=== PATIENT | female | born 2000 | race Two or more races ===

== ENCOUNTER 2024-07-14 13:06 | Emergency (ER) | payer OTHER ==
[~2024-07-14] VITALS: Ht 160 cm; Wt 85.5 kg
[2024-07-14 13:34] LABS: Urine Bacteria None Seen /hpf (None Seen)
[2024-07-14 14:00] LABS: Urine Blood 2+ /uL (Negative); Urine Clarity Clear (Clear); Urine Color Light-Yellow (Yellow); Urine Protein, UAD Negative (Negative); Urine Specific Gravity 1.015 (1.001-1.035); Urine Urobilinogen Normal (Negative); Urine WBC 2 /hpf (0 - 5)
[2024-07-14 14:12] LABS: Basophils # (auto) 0.1 10 ^3/uL (0-0.2); Basophils % (auto) 0.6 % (0.0-2.0); Eosinophils # (auto) 0.2 10 ^3/uL (0-0.8); Eosinophils % (auto) 1.7 % (0.0-7.0); Hematocrit 44.8 % (36.0-46.0); Hemoglobin 15.2 g/dL (12.2-16.2); Lymphocytes # (auto) 2.9 10 ^3/uL (0.4-5.4); Lymphocytes % (auto) 30.5 % (10.0-50.0); Mean Corpuscular Hemoglobin 29.5 pg (28.0-32.0); Mean Corpuscular Hgb Conc. 33.8 g/dL (32.0-36.0); Mean Corpuscular Volume 87.3 fL (80.0-100.0); Monocytes # (auto) 0.7 10 ^3/uL (0-1.3); Monocytes % (auto) 7.4 % (0.0-12.0); Neutrophils # (auto) 5.7 10 ^3/uL (1.6-8.6); Neutrophils % (auto) 59.8 % (37.0-80.0); Nucleated Red Blood Cells % 0.1 %; Platelet Count (auto) 291 10^3/uL (140-450); Red Blood Cells 5.13 10^6/uL (4.0-5.20); Red Cell Distribution Width 12.7 % (11.8-14.3); White Blood Cell 9.5 10^3/uL (4.4-10.8)
[2024-07-14 14:29] LABS: Alanine Aminotransferase 21 U/L (7-40); Alkaline Phosphatase 58 U/L (46-116); Anion Gap 5 (5-15); BUN/Creatinine Ratio 11.5 (10.0-20.0); Blood Urea Nitrogen 9 mg/dL (9-23); Calcium 9.9 mg/dL (8.7-10.4); Carbon Dioxide 25 mmol/L (20-31); Chloride 106 mmol/L (98-107); Glucose 95 mg/dL (74-106); Potassium 3.7 mmol/L (3.5-5.1); Sodium 136 mmol/L (136-145)
[2024-07-14 14:30] LABS: Albumin 4.5 g/dL (3.2-4.8); Aspartate Aminotransferase 14 U/L (13-40); Bilirubin, Total 0.6 mg/dL (0.2-1.0); Total Protein 7.3 g/dL (5.7-8.2)
[2024-07-14 15:53] LABS: INR 0.99 (0.9-1.15); Partial Thromboplastin Time 28.2 SEC (24.5-34.5); Prothrombin Time 10.5 sec (9.3-11.8)
[2024-07-14 17:37] VITALS: BP 132/73; PULSE 76; RESP 16; TEMP 98.1; O2SAT 97
== END 2024-07-14 17:47 | disposition home or self-care (01) ==
LOC: ER 13:06
DX: O20.8 Other hemorrhage in early pregnancy (principal); N93.9 Abnormal uterine and vaginal bleeding, unspecified; Z3A.08 8 weeks gestation of pregnancy
CPT/HCPCS: 36415; 76801; 76817; 80053; 81001; 84702; 85025; 85610; 85730; 86850; 86900; 86901

== ENCOUNTER 2025-02-23 21:24 | Inpatient (IN) | payer OTHER ==
[~2025-02-23] VITALS: Ht 157.5 cm; Wt 88.9 kg
[2025-02-23 22:59] LABS: Fern Testing Positive
--- NOTE | 2025-02-23 22:59 | DVHHP2 ---
OB CC & HPI Date Date of Admission: Feb 23, 2025 Patient Identification: : 2 Para: 1 EDC: Mar 06, 2025 EGA: 38.3wks Chief Complaints: Reason for admission: rupture of membranes History of Present Complaints 24yo IUP@38.3wks presents in labor. Pt reports UCs/LOF/VB that started at 2000 after having sex at 1730. Reports clear fluid gush after sex. Denies PEREYRA/vision changes/RUQ pain. Endorses +FM. PNC with Dr. Manny Stack, no records available, PNC complicated by GDM, A1 per pt. Pt reports EFW in office today was 7lbs 10oz. NORRIS 03/06/25 based on LMP c/w 1st trimester sono, GBS unknown. OB hx: x1, uncomplicated in 2022, 6lbs 14oz Past Medical History Cardiac: No pertinent Hx Pulmonary: No pertinent Hx Central Nervous System: No pertinent Hx GI: No pertinent Hx Hemotology/Oncology: No pertinent Hx Hepatobiliary: No pertinent Hx Psychiatric: No pertinent Hx Musculoskeletal: No pertinent Hx Rheumotologic: No pertinent Hx Infectious Disease: No peritnent Hx ENT: No pertinent Hx Renal/: No pertinent Hx Endocrine: No pertinent Hx Dermatology: No pertinent Hx Past Surgical History: No pertinent Hx OB History OB History Care: Good Care (per pt) Ultrasounds: Normal mid trimester US (per pt) Obstetrical Complications: Gestational Diabetes (A1 per pt) Medical Complications: None Allergies: Coded Allergies: No Known Drug Allergy (Verified Allergy, Unknown, 07/14/24) Allergies NKDA Home Meds PNV Family & Social History Family/Social History Past Family/Social History: denies Blood Type: Unknown Rubella: unknown RPR/VDRL: Unknown GBS Status: Negative (per pt) HBsAG: Unknown Review of Systems Constitutional: No symptom reported Ears, Nose, & Throat: No symptom reported Eyes: No symptom reported Pulmonary/Respiratory: No symptom reported Cardiovascular: No symptom reported Gastrointestinal: No symptom reported Genitourinary: No symptom reported Musculoskeletal: No symptom reported Skin: No symptom reported Psychiatric: No symptom reported Endocrine: No symptom reported Hemotologic/Lymphatic: No symptom reported OB Admission Exam Physical Exam Vitals: VSS, see CPN SSE by RN: +pooling, +VB Laboratory Tests Test 02/23/25 21:10 02/23/25 22:10 Range/Units Amniotic Fluid Ferning Test Positive Vaginal WBC (Wet Prep) Few Vaginal RBC (Wet Prep) Moderate Vaginal Epithelial Cells (Wet Prep) Rare Vaginal Bacteria (Wet Prep) Rare Vaginal Trichomonas (Wet Prep) Not present Vaginal Yeast (Wet Prep) None seen Vaginal Clue Cells (Wet Prep) None seen HEENT: TMs Normal, Fontanelles Normal, Nasal Mucosa Normal, Eyes non-injected, Oropharynx Normal, PERRLA, Moist Membranes, EOMI Heart: Rhythm Normal Lungs: Clear Abdomen: Gravid Extremities: Normal Reflexes: Normal Pelvic Exam: SVE by RN: 2.5/50/-3, vertex Heart Rate: 140's Accelerations: Accelerations Present Decelerations: No Decelerations Cleaner Operator Variability: Average (6-25) Contractions on Admission: < 5 Minutes Apart Intensity: Mild OB Plan Plan Admitting Diagnosis: SROM Plan: Other (augmentation) Induction Methd: Pitocin protocol Other Plan: A: 24yo IUP@38.3wks Pitocin augmentation SROM, clear fluid GDM, A1 Category I EFM GBS negative per pt P: Admit to L&D Informed consent obtained Discussed risks, benefits, alternatives of IV pitocin augmentation. Pt consents to it. monitoring per order Routine labs ordered OB complete ordered Pain mgmt PRN Frequent position changes in and out of bed encouraged Limit SVE unless necessary Intrauterine resuscitation PRN Anticipate CNM will consult with Dr. Valladares PRN Visit Coding OBGYN Date of Service: Feb 23, 2025 Billing Provider: ENEDELIA FRANCO CNM OFFICE MAIL CLERK Common Visit Codes: [id number] INP/OBS CARE (HIGH) OFFICE MAIL CLERK Procedure Codes: 34571-10- NON-STRESS TEST ENEDELIA FRANCO CNM Feb 23, 2025 22:59
[2025-02-23 23:01] LABS: Vaginal Epithelial Cells Rare
[2025-02-23 23:02] LABS: Vaginal Trichomonas Not Present
[2025-02-23 23:03] LABS: Vaginal Bacteria Rare; Vaginal Clue Cells None Seen
[2025-02-24] MEDS ORDERED: NALBUPHINE HCL 10 MG/1ml INJECTION IV PRN
[2025-02-24] MEDS ORDERED: LIDOCAINE 2%HCL (LOCAL ANESTH.) INJ 20ML MDV IJ PRN
[2025-02-24] MEDS ORDERED: LACTATED RINGER'S 1,000 ML IV SCH ×2
[2025-02-24] MEDS ORDERED: LACT. RINGERS/OXYTOCIN 20UNITS 1,000 ML IV SCH
[2025-02-24] MEDS ORDERED: TERBUTALINE SULFATE 1 MG/ML 1ML VIAL SC PRN
[2025-02-24] MEDS: PENICILLIN G POT 5MIL/D5 50ML 50 ML IV ONE (00:15)
[2025-02-24 01:31] LABS: Alanine Aminotransferase 10 U/L (7-40); Albumin 4.1 g/dL (3.2-4.8); Alkaline Phosphatase 111 U/L (46-116); Anion Gap 11 (5-15); BUN/Creatinine Ratio 16.1 (10.0-20.0); Bilirubin, Total 0.4 mg/dL (0.2-1.0); Blood Urea Nitrogen 9 mg/dL (9-23); Calcium 9.7 mg/dL (8.7-10.4); Carbon Dioxide 21 mmol/L (20-31); Glucose 87 mg/dL (74-106); Potassium 3.8 mmol/L (3.5-5.1); Sodium 139 mmol/L (136-145); Total Protein 6.4 g/dL (5.7-8.2)
--- NOTE | 2025-02-24 01:40 | DVH ---
OB ULTRASOUND, LIMITED CLINICAL INDICATION: no records, possible SROM TECHNIQUE: Multiple grayscale ultrasound and M-mode images were obtained of the pelvis for evaluation of intrauterine . COMPARISON: None FINDINGS: A single living fetus is seen in cephalic presentation. Biparietal diameter: 9.12 cm (37 weeks, 0 days) Head Circumference: 33.6 cm (38 weeks, 4 days) Abdomen Circumference: 36.6 cm (40 weeks, 4 days) Femur Length: 7.54 cm (38 weeks, 4 days) Estimated weight: 3778 grams (+/- 583 grams). 8 lb 9 oz Placenta: Anterior, grade 2. Amniotic fluid: Borderline Polyhydramnios. WANDER 24.24 cm heart rate: 153 beats/min. A complete anatomic survey was not performed on this exam. IMPRESSION: 1.Single living intrauterine with an estimated gestational age of 39 weeks, 0 days, cecelia esponding to an estimated date of delivery of 03/02/2025. 2.Borderline polyhydramnios
[2025-02-24 01:49] LABS: Chloride 107 mmol/L (98-107)
[2025-02-24 01:59] LABS: INR 0.93 (0.9-1.15); Prothrombin Time 9.9 sec (9.3-11.8)
[2025-02-24 02:00] LABS: Partial Thromboplastin Time 27.2 SEC (24.5-34.5)
[2025-02-24 02:02] LABS: Basophils # (auto) 0 10 ^3/uL (0-0.2); Basophils % (auto) 0.2 % (0.0-2.0); Eosinophils # (auto) 0.1 10 ^3/uL (0-0.8); Eosinophils % (auto) 0.8 % (0.0-7.0); Hematocrit 41.5 % (36.0-46.0); Hemoglobin 14.1 g/dL (12.2-16.2); Lymphocytes # (auto) 2.3 10 ^3/uL (0.4-5.4); Lymphocytes % (auto) 27.4 % (10.0-50.0); Mean Corpuscular Hemoglobin 30.1 pg (28.0-32.0); Mean Corpuscular Hgb Conc. 34.1 g/dL (32.0-36.0); Mean Corpuscular Volume 88.3 fL (80.0-100.0); Monocytes # (auto) 0.5 10 ^3/uL (0-1.3); Monocytes % (auto) 6.4 % (0.0-12.0); Neutrophils # (auto) 5.5 10 ^3/uL (1.6-8.6); Neutrophils % (auto) 65.2 % (37.0-80.0); Nucleated Red Blood Cells % 0.1 %; Platelet Count (auto) 235 10^3/uL (140-450); Red Cell Distribution Width 14.2 % (11.8-14.3); White Blood Cell 8.4 10^3/uL (4.4-10.8)
[2025-02-24 02:11] LABS: Urine Bacteria FEW /hpf (None Seen); Urine Blood 3+ /uL (Negative); Urine Clarity Clear (Clear); Urine Color Colorless (Yellow); Urine Mucus FEW (None Seen); Urine Protein, UAD Negative (Negative); Urine Specific Gravity 1.015 (1.001-1.035); Urine Squamous Epithelial Cell FEW /hpf (<5); Urine Urobilinogen Normal (Negative); Urine WBC 4 /HPF (0-5); Urine pH 6.5 (5.0-9.0)
[2025-02-24 02:33] LABS: Amphetamine Screen, Urine Neg (NEGATIVE); Barbiturate Scree,Urine Neg (NEGATIVE); Benzodiazephine Screen, Urine Neg (NEGATIVE); Cannabinoid Screen, Urine Neg (NEGATIVE); Cocaine Screen, Urine Neg (NEGATIVE); Opiate Scree,Urine Neg (NEGATIVE); Phencyclidine Screen, Urine Neg (NEGATIVE)
[2025-02-24 02:42] LABS: Aspartate Aminotransferase 13 U/L (13-40)
--- NOTE | 2025-02-24 02:55 | DVHPN2 ---
CNM Labor Progress Note Date and Time Seen Date Seen: Feb 24, 2025 Time Seen: 02:45 Subjective Subjective Comment Pt reports feeling more contractions but still tolerable. does not plan on getting an epidural. Objective Vital Signs VSS, see CPN [address] [address] Ph: [phone] DIAGNOSTIC IMAGING Diagnostic Imaging Report : [id number] Signed PATIENT: YELENA HOLM ACCT: [id number] UNIT: [id number] : 2000 LOC: [facility] ROOM / BED: TRIAGE2 / A AGE / SEX: 24 / F ADM STATUS: ADM IN SERVICE 48 ORDERING PHYSICIAN: ENEDELIA FRANCO CNM PROCEDURE(s): OBUS - OB ULTRASOUND COMP GTR 14 WKS REASON: no records, possible SROM ORDER NUMBER(s): [id number], ACCESSION NUMBER(s): [id number] OB ULTRASOUND, LIMITED CLINICAL INDICATION: no records, possible SROM TECHNIQUE: Multiple grayscale ultrasound and M-mode images were obtained of the pelvis for evaluation of intrauterine . COMPARISON: None FINDINGS: A single living fetus is seen in cephalic presentation. Biparietal diameter: 9.12 cm (37 weeks, 0 days) Head Circumference: 33.6 cm (38 weeks, 4 days) Abdomen Circumference: 36.6 cm (40 weeks, 4 days) Femur Length: 7.54 cm (38 weeks, 4 days) Estimated weight: 3778 grams (+/- 583 grams). 8 lb 9 oz Placenta: Anterior, grade 2. Amniotic fluid: Borderline Polyhydramnios. WANDER 24.24 cm heart rate: 153 beats/min. A complete anatomic survey was not performed on this exam. IMPRESSION: 1. Single living intrauterine with an estimated gestational age of 39 weeks, 0 days, corresponding to an estimated date of delivery of 03/02/2025. 2. Borderline polyhydramnios ATED BY: JOHNSON COTTON MD DICTATED DATE/TIME: 02/23/252351 SIGNED BY: JOHNSON COTTON MD SIGNED DATE/TIME: 02/23/252351 CC: Monitoring Method Monitoring Method: External (attempted to place FSE with pt consent, but unsuccessful due to copious amounts of amniotic fluid being expelled) Heart Rate Heart Rate Baseline: 130 Heart Rate Variability: Moderate Presence of FHR Accelerations: Yes Presence of FHR Decelerations: No Are all 5 Components of the FH: Yes Contractions Contractions Frequency: Other (q2-4 min) Duration of Contraction: 80 Contractions Intensity: Moderate Contractions Resting Tone: Relaxed Membranes Membranes: Ruptured (AROM, forebag) Amniotic Fluid Color: Clear Vaginal Exam Vag Exam Deferred: No Vaginal Exam Dilation: 5 Vaginal Exam Effacement: 70 Vaginal Exam Station: -2 Vaginal Exam Presentation: VTX Vaginal Exam Show: Moderate Medications Medications - Pitocin: No Medications - Pain Medications: PRN Medication - Epidural: No Lab Results Lab Results Vital Signs Date Time Temp Pulse Resp B/P (MAP) Pulse Ox O2 Delivery O2 Flow Rate FiO2 02/24/25 09:30 Room Air Current Medications Medications (Trade) Dose Ordered Sig/Kristie Start Time Stop Time Status Last Admin Dose Admin Lactated Ringer's 1,000 ml @ 125 mls/hr Q8H 02/24/25 00:00 02/24/25 07:53 DC Nalbuphine HCl (Nubain) 10 mg Q4HP PRN 02/24/25 00:00 02/24/25 07:53 DC Yari Philip (Tucks) 1 pad PRN PRN 02/24/25 00:00 02/24/25 03:14 1 PAD Sodium Lauryl Sulfate (Phisoderm) 240 ml PRN PRN 02/24/25 00:00 02/24/25 03:14 240 ML Benzocaine (Dermoplast) 1 applic PRN PRN 02/24/25 00:00 02/24/25 03:14 1 APPLIC Lidocaine HCl (Xylocaine) 20 ml ONCE PRN 02/24/25 00:00 02/24/25 07:53 DC Lactated Ringer's 1,000 ml @ 125 mls/hr Q8H 02/24/25 00:00 02/24/25 07:53 DC Oxytocin 1,000 ml @ 6 ml/hr Q24H 02/24/25 00:00 02/24/25 07:54 DC Terbutaline Sulfate (Brethine Inj) 0.25 mg ONCE PRN 02/24/25 00:00 02/24/25 07:54 DC Oxytocin 500 ml @ 999 mls/hr Q31M ONCE 02/24/25 00:00 02/24/25 01:42 DC 02/24/25 07:10 999 MLS/HR Oxytocin 500 ml @ 125 mls/hr Q4H ONCE 02/24/25 00:30 02/24/25 04:29 DC 02/24/25 09:40 125 MLS/HR Penicillin G Potassium 50 ml @ 100 mls/hr ONCE ONCE 02/24/25 00:15 02/24/25 02:01 DC Penicillin G Potassium [id number] units/Dextrose 50 ml @ 100 mls/hr Q4H 02/24/25 04:15 02/24/25 07:54 DC Calcium Carbonate (Tums) 1,000 mg ONCE ONCE 02/24/25 04:30 02/24/25 04:31 DC Methylergonovine Maleate (Methergine) 0.2 mg ONCE ONCE 02/24/25 07:15 02/24/25 07:33 DC 02/24/25 09:46 0.2 MG Ibuprofen (Motrin Tablet) 600 mg Q6HP PRN 02/24/25 08:00 02/24/25 08:25 600 MG Acetaminophen (Tylenol Tablet) 650 mg Q6HPRN PRN 02/24/25 08:00 Prenat Multivit/ Corporate Event Planner/Iron/Folic Ac (Prenavite Tablet) 1 DAILY 02/24/25 10:00 Docusate Sodium (Colace Capsule) 200 mg DAILYPRN PRN 02/24/25 10:00 Laboratory Tests Test 02/24/25 13:54 02/24/25 13:52 02/24/25 00:03 02/24/25 00:00 Range/Units White Blood Count 11.7 #H 4.4-10.8 10^3/uL Red Blood Count 4.00 4.0-5.20 10^6/uL Hemoglobin 12.0 L 12.2-16.2 g/dL Hematocrit 35.2 #L 36.0-46.0 % Mean Corpuscular Volume 88.1 80.0-100.0 fL Mean Corpuscular Hemoglobin 30.0 28.0-32.0 pg Mean Corpuscular Hemoglobin Concent 34.1 32.0-36.0 g/dL Red Cell Distribution Width 14.0 11.8-14.3 % Platelet Count 209 140-450 10^3/uL Mean Platelet Volume 6.7 L 6.9-10.8 fL Neutrophils (%) (Auto) 74.6 37.0-80.0 % Lymphocytes (%) (Auto) 14.3 10.0-50.0 % Monocytes (%) (Auto) 10.5 0.0-12.0 % Eosinophils (%) (Auto) 0.3 0.0-7.0 % Basophils (%) (Auto) 0.3 0.0-2.0 % Neutrophils # (Auto) 8.7 H 1.6-8.6 10 ^3/uL Lymphocytes # (Auto) 1.7 0.4-5.4 10 ^3/uL Monocytes # (Auto) 1.2 0-1.3 10 ^3/uL Eosinophils # (Auto) 0 0-0.8 10 ^3/uL Basophils # (Auto) 0 0-0.2 10 ^3/uL Nucleated Red Blood Cells 0.1 % POC Glucose 132 H 70-106 mg/dl Prothrombin Time 9.9 9.3-11.8 sec Prothrombin Time INR 0.93 0.9-1.15 Activated Partial Thromboplast Time 27.2 24.5-34.5 SEC Sodium Level 139 136-145 mmol/L Potassium Level 3.8 3.5-5.1 mmol/L Chloride Level 107 98-107 mmol/L Carbon Dioxide Level 21 20-31 mmol/L Anion Gap 11 5-15 Blood Urea Nitrogen 9 9-23 mg/dL Creatinine 0.56 0.550-1.02 mg/dL Glomerular Filtration Rate Calc 131 >90 mL/min BUN/Creatinine Ratio 16.1 10.0-20.0 Serum Glucose 87 74-106 mg/dL Calcium Level 9.7 8.7-10.4 mg/dL Total Bilirubin 0.4 0.2-1.0 mg/dL Aspartate Amino Transferase (AST) 13 13-40 U/L Alanine Aminotransferase (ALT) 10 7-40 U/L Alkaline Phosphatase 111 46-116 U/L Total Protein 6.4 5.7-8.2 g/dL Albumin 4.1 3.2-4.8 g/dL Treponema pallidum Antibody Non-reactive Negative Hepatitis B Surface Antigen Negative Negative Hepatitis C Antibody Negative Negative Rubella Antibody Reactive Urine Color Colorless Yellow Urine Clarity Clear Clear Urine pH 6.5 5.0-9.0 Urine Specific [place] 1.015 1.001-1.035 Urine Protein Negative Negative Urine Ketones Negative Negative Urine Blood 3+ H Negative /uL Urine Nitrite Negative Negative Urine Bilirubin Negative Negative Urine Urobilinogen Normal Negative mg/dL Urine Leukocyte Esterase 1+ Negative /uL Urine RBC 382 0 - 4 /hpf Urine Microscopic WBC 4 0-5 /HPF Urine Squamous Epithelial Cells Few <5 /hpf Urine Calcium Oxalate Crystals Few None Seen Urine Bacteria Few H None Seen /hpf Urine Mucus Few None Seen Urine Glucose Normal Normal mg/dL Urine Opiates Screen Neg NEGATIVE Urine Fentanyl Screen Neg NEGATIVE Urine Barbiturates Screen Neg NEGATIVE Urine Phencyclidine Screen Neg NEGATIVE Urine Amphetamines Screen Neg NEGATIVE Urine Benzodiazepines Screen Neg NEGATIVE Urine Cocaine Screen Neg NEGATIVE Urine Cannabinoids Screen Neg NEGATIVE Chlamydia trachomatis (ANCA) Pending Neisseria gonorrhoeae (ANCA) Pending Test 02/23/25 22:10 02/23/25 21:10 Range/Units Vaginal WBC (Wet Prep) Few Vaginal RBC (Wet Prep) Moderate Vaginal Epithelial Cells (Wet Prep) Rare Vaginal Bacteria (Wet Prep) Rare Vaginal Trichomonas (Wet Prep) Not present Vaginal Yeast (Wet Prep) None seen Vaginal Clue Cells (Wet Prep) None seen Amniotic Fluid Ferning Test Positive Assessment Assessment 24yo IUP@38.4wks Pitocin augmentation SROM, clear fluid GDM, A1 Category I EFM GBS negative per pt Plan Plan Start pitocin when tracing permits monitoring per order Pain mgmt PRN Frequent position changes in and out of bed encouraged Limit SVE unless necessary Intrauterine resuscitation PRN Anticipate CNRuchi will consult with Dr. Valladares PRN Plan discussed with: Patient, Spouse Visit Coding OBGYN Date of Service: Feb 24, 2025 Billing Provider: ENEDELIA FRANCO CNM POWER PLANT INSPECTOR Common Visit Codes: [id number] INP/OBS CARE(HIGH) ENEDELIA FRANCO CNM Feb 24, 2025 02:55
[2025-02-24] MEDS: DERMOPLAST 60ML BOTTLE TOP PRN (03:14)
[2025-02-24] MEDS: PHISODERM TOP SOLN 240ML BTL TOP PRN (03:14)
[2025-02-24] MEDS: WITCH HAZEL-GLYCERIN PAD TOP PRN (03:14)
[2025-02-24 03:55] LABS: Hepatitis B Surface Antigen Negative (Negative)
[2025-02-24] MEDS ORDERED: PENICILLIN G POTASSIUM 2,500,000 UNITS in D5W 5% 50 ML IV SCH (04:15)
[2025-02-24 04:21] LABS: Hepatitis C Antibody Negative (Negative)
[2025-02-24] MEDS ORDERED: CALCIUM CARB 500 MG CHEW TAB PO ONE (04:30)
[2025-02-24] MEDS: METHYLERGONOVINE MALEATE 0.2 MG/ML AMP IM ONE ×2 (07:04→09:46)
[2025-02-24] MEDS: LACT. RINGERS/OXYTOCIN 20UNITS 500 ML IV ONE ×2 (07:10→09:40)
--- NOTE | 2025-02-24 07:30 | LDN2 ---
Labor and Delivery Note Date 02/24/25 Age 24 2 Para now 2 AB 0 EDC 03/06/25 EGA 38.4 wks Diagnosis Vaginal Delivery: VTX Vacuum Assisted: No Placenta: Spontaneous Sex: Female Weight pending Apgars 9/9 Nuchal Cord Transected: No Amniotic Fluid: Clear Anesthesia None Episiotomy: No Extension: No Repaired with None EBL QBL 1100 mL Labs Laboratory Tests 02/24/25 00:03: Hepatitis B Surface Antigen Negative, Rubella Antibody Reactive Blood Bank 02/24/25 00:03: Blood Type O POSITIVE Complications None Conditions Stable Metal Cut Off Saw Tender Somu Comments/Significant Med [place] At 0648 this 24yo now delivered a viable Female by w/ APGARS 9/9. MIRA with left hand compound presentation. placed skin to skin on pts chest. Cord clamped and cut after pulsation ceased. Cord blood sent. Intact 3-vessel cord placenta delivered spontaneously, [place]. Pitocin IV bolus started. Uterus firm to massage, clots expelled, IM Methergine and IV TXA x1 given. Placenta sent to pathology. Patient had no anesthesia. Cervix/vagina inspected (intact) and perineum/labia intact. Fundus at U, firm, midline, and light lochia. QBL 1100ml. VSS. Count correct x2. Patient to care and baby to couplet care, both stable. Visit Coding OBGYN Date of Service: Feb 24, 2025 Billing Provider: ENEDELIA FRANCO CNM ASSOCIATE SOFTWARE DEVELOPER Common Visit Codes: PROCEDURE ONLY ASSOCIATE SOFTWARE DEVELOPER Procedure Codes: [id number] DEL INCLUDING LINA GAUTAM STUDENTMDW Feb 24, 2025 07:30
[2025-02-24] MEDS ORDERED: IBUPROFEN 600 MG TAB PO PRN (07:45)
[2025-02-24] MEDS ORDERED: ACETAMINOPHEN 325 MG TAB PO PRN ×2 (07:45→08:00)
[2025-02-24] MEDS: IBUPROFEN 600 MG TAB PO PRN (08:25)
[2025-02-24] MEDS ORDERED: DOCUSATE SOD 100 MG CAP PO PRN (10:00)
[2025-02-24] MEDS ORDERED: PRENATAL VITAMIN TAB PO SCH (10:00)
[2025-02-24 11:00] VITALS: BP 116/65; PULSE 79; RESP 18; TEMP 98.2; O2SAT 98
[2025-02-24] MEDS ORDERED: AMMONIA 0.33 ML INHALANT IN ONE (13:39)
[2025-02-24 14:05] LABS: Basophils # (auto) 0 10 ^3/uL (0-0.2); Basophils % (auto) 0.3 % (0.0-2.0); Eosinophils # (auto) 0 10 ^3/uL (0-0.8); Eosinophils % (auto) 0.3 % (0.0-7.0); Hematocrit 35.2 % (36.0-46.0); Lymphocytes # (auto) 1.7 10 ^3/uL (0.4-5.4); Lymphocytes % (auto) 14.3 % (10.0-50.0); Mean Corpuscular Hgb Conc. 34.1 g/dL (32.0-36.0); Mean Corpuscular Volume 88.1 fL (80.0-100.0); Monocytes # (auto) 1.2 10 ^3/uL (0-1.3); Monocytes % (auto) 10.5 % (0.0-12.0); Neutrophils # (auto) 8.7 10 ^3/uL (1.6-8.6); Neutrophils % (auto) 74.6 % (37.0-80.0); Nucleated Red Blood Cells % 0.1 %; Platelet Count (auto) 209 10^3/uL (140-450); White Blood Cell 11.7 10^3/uL (4.4-10.8)
[2025-02-24 15:30] VITALS: BP 99/53; PULSE 80; RESP 18; TEMP 98.3; O2SAT 99
[2025-02-24 19:00] VITALS: BP 102/59; PULSE 83; RESP 16; TEMP 97.6; O2SAT 97
[2025-02-24 23:00] VITALS: BP 91/52; PULSE 98; RESP 16; TEMP 98.2; O2SAT 98
--- NOTE | 2025-02-25 00:13 | DVHPN2 ---
Progress Note Date Seen: Feb 25, 2025 Subjective S: bleeding is less, eating food without issues, denies lightheaded/dizziness, pain well controlled with oral medications, no concerns with urinating, passing flatus, no BM yet, ambulating well, well vital signs Vital Sign Date Time Temp Pulse Resp B/P (MAP) Pulse Ox O2 Delivery O2 Flow Rate FiO2 02/24/25 23:00 98.2 98 16 91/52 (65) 98 98.2 02/24/25 19:00 Room Air Total Intake and Output 02/24/25 02/24/25 02/25/25 15:00 23:00 07:00 Output Total 700 ml 1200 ml Balance -700 ml -1200 ml medications Current Medications Medications Dose Ordered Sig/Kristie Route Start Time Stop Time Status Last Admin Dose Admin Yari Philip 1 pad PRN PRN TOP 02/24/25 00:00 02/24/25 03:14 1 PAD Sodium Lauryl Sulfate 240 ml PRN PRN TOP 02/24/25 00:00 02/24/25 03:14 240 ML Benzocaine 1 applic PRN PRN TOP 02/24/25 00:00 02/24/25 03:14 1 APPLIC Ibuprofen 600 mg Q6HP PRN PO 02/24/25 07:45 UNV Acetaminophen 650 mg Q4HP PRN PO 02/24/25 07:45 UNV Ibuprofen 600 mg Q6HP PRN PO 02/24/25 08:00 02/24/25 08:25 600 MG Acetaminophen 650 mg Q6HPRN PRN PO 02/24/25 08:00 Prenat Multivit/ Reimbursement Representative/Iron/Folic Ac 1 DAILY PO 02/24/25 10:00 Docusate Sodium 200 mg DAILYPRN PRN PO 02/24/25 10:00 laboratory and microbiology Laboratory Tests 02/24/25 13:54 02/24/25 00:03 Test 02/24/25 00:03 Range/Units Serum Glucose 87 74-106 mg/dL Objective O: VSS Chest: heart sounds normal and lung sounds clear bilaterally Abd: soft, non-tender, fundus at U/firm/midline, active bowel sounds, no rebound or guarding Perineum: intact, no erythema/edema noted Ext: Non-tender, No edema, 2+ BLE DTRs Lochia: minimal See lab results Problems(with codes): (1) (normal spontaneous vaginal delivery) (2) Spontaneous onset of labor (3) Intact perineum Assessment/Plan A: 24yo now PPD#1 s/p Rh+ Rubella Immune Pain control with PO medications Bowel regimen P: D/C home today Rx sent to pharmacy precautions and preeclampsia warning signs reviewed F/U with primary OB provider as scheduled on 03/03/25 Plan discussed with: Patient, Spouse Visit Coding OBGYN Date of Service: Feb 25, 2025 Billing Provider: ENEDELIA FRANCO CNM LEAN MANUFACTURING ENGINEER Common Visit Codes: [id number] INP/OBS CARE(MOD) LINA GAUTAM STUDENTMDW Feb 25, 2025 00:13
[2025-02-25] MEDS ORDERED: DOCU-265 PO (00:16)
[2025-02-25] MEDS ORDERED: PREN-96 PO (00:16)
[2025-02-25] MEDS ORDERED: IBU600T PO (00:16)
--- NOTE | 2025-02-25 00:18 | DVHDS2 ---
Obstetrics Discharge Summary Obstetrics Discharge Summary Date of Admission: Feb 23, 2025 Date of Discharge: Feb 25, 2025 Reason For Admission: Onset of Labor Procedures: NST, Ultrasound, Mgmt of Obstetrics Compli (GDM, A1) Intrapartum Procedures: Spontaneous vaginal deliv Procedures: Hct/date: (02/25/25), Hgb/date: (02/25/25) Operative Complicat: None Discharge Diagnosis: Term -Delivered Discharge Information: Activity (as tolerated, no heavy lifting and nothing in the vagina for 6 weeks), Diet (Routine), Medications (Rx sent), Instructions (Routine), Discharge to (Home), Accompanied by (partner), Discarge date (02/25/25) Visit Coding OBGYN Date of Service: Feb 25, 2025 Billing Provider: ENEDELIA FRANCO CNM MACHINE MAINTENANCE SUPERVISOR Common Visit Codes: [id number]/[id number] DISCH DAY <30MIN LINA GAUTAM STUDENTMDW Feb 25, 2025 00:18
[2025-02-25 03:00] VITALS: BP 91/55; PULSE 78; RESP 16; TEMP 98; O2SAT 97
[2025-02-25 07:00] VITALS: BP 102/62; PULSE 91; RESP 18; TEMP 97.9; O2SAT 96
[2025-02-25 09:03] VITALS: TEMP 36.6
[2025-02-25 09:20] LABS: Basophils # (auto) 0 10 ^3/uL (0-0.2); Basophils % (auto) 0.2 % (0.0-2.0); Eosinophils # (auto) 0.1 10 ^3/uL (0-0.8); Eosinophils % (auto) 0.9 % (0.0-7.0); Hematocrit 31.6 % (36.0-46.0); Hemoglobin 10.9 g/dL (12.2-16.2); Lymphocytes # (auto) 1.9 10 ^3/uL (0.4-5.4); Lymphocytes % (auto) 21.1 % (10.0-50.0); Mean Corpuscular Hemoglobin 30.7 pg (28.0-32.0); Mean Corpuscular Hgb Conc. 34.4 g/dL (32.0-36.0); Mean Corpuscular Volume 89.1 fL (80.0-100.0); Monocytes # (auto) 0.4 10 ^3/uL (0-1.3); Monocytes % (auto) 4.7 % (0.0-12.0); Neutrophils # (auto) 6.4 10 ^3/uL (1.6-8.6); Neutrophils % (auto) 73.1 % (37.0-80.0); Platelet Count (auto) 196 10^3/uL (140-450); Red Blood Cells 3.54 10^6/uL (4.0-5.20); Red Cell Distribution Width 14.5 % (11.8-14.3); White Blood Cell 8.8 10^3/uL (4.4-10.8)
[2025-02-26 01:06] LABS: Chlamydia Trachomatis, NAA Negative (Negative); Neisseria gonorrhoeae, NAA Negative (Negative)
== END 2025-02-25 10:45 | disposition home or self-care (01) | DRG 806 ==
LOC: LDRP 21:24 → OBSVTOIN 23:00 → LDRP 02-24 01:58
PROVIDERS: ADMIT Obstetrics & Gynecology; ATTEND Obstetrics & Gynecology
PROC: 10E0XZZ Delivery of Products of Conception, External Approach (ICD-10-PCS; principal; 2025-02-24)
DX: O24.420 Gestational diabetes mellitus in childbirth, diet controlled (principal); R71.0 Precipitous drop in hematocrit; Z37.0 Single live birth; Z3A.38 38 weeks gestation of pregnancy
CPT/HCPCS: 36415; 59025; 59409; 76805; 80053; 80307; 81001; 81002; 82948; 82962; 85025; 85610; 85730; 86762; 86780; 86803; 86850; 86900; 86901; 87210; 87340; 94760; 94762; 96360; 96361; 96365; 96366; G0378; J2590; J7060